=== PATIENT | female | born 1975 | race African-American/Black ===

== ENCOUNTER 2018-10-30 17:54 | Emergency (ER) | payer SELFPAY ==
[2018-10-30 18:17] LABS: Bilirubin Negative (Negative); Blood, Urine Trace (Negative); Clarity Hazy (Clear); Glucose, Urine (Dipstick) Negative (Negative); Leukocyte Negative (Negative); Nitrite Negative (Negative); Protein, Urine (Dipstick) Negative (Neg-Trace); Urobilinogen 0.2 mg/dL (0.2-1.0)
[2018-10-30 18:18] LABS: Pregnancy Test - Urine (BHCG) Negative (Negative); Pregu Control Background? CLEAR/WHITE (CLR/WHITE); Pregu Control Bar Appear? YES (CONTROL BAR)
[2018-10-30 18:23] LABS: Bacteria/HPF Rare-Few HPF (None Seen); RBC/HPF 0-3 HPF (0-3); WBC/HPF 0-3 HPF (0-3)
[2018-10-30] MEDS ORDERED: Ondansetron ODT 4 MG TAB ONE (18:23)
== END 2018-10-30 18:55 | disposition home or self-care (01) ==
LOC: MADERS 17:54
DX: K52.9 Noninfective gastroenteritis and colitis, unspecified (principal); R51 Headache
CPT/HCPCS: 81003; 81015; 81025; 99284; Q0162

== ENCOUNTER 2022-05-14 20:08 | Emergency (ER) | payer OTHER, SELFPAY ==
[2022-05-14] MEDS ORDERED: Naproxen 500 MG TAB ONE (20:38)
[2022-05-14] MEDS ORDERED: Meloxicam 7.5 MG TAB PO SCH (21:00)
== END 2022-05-14 21:01 | disposition home or self-care (01) ==
LOC: MADERS 20:08
DX: M75.32 Calcific tendinitis of left shoulder (principal); I10 Essential (primary) hypertension; Z79.01 Long term (current) use of anticoagulants
CPT/HCPCS: 99283